=== PATIENT | male | born 2000 ===

== ENCOUNTER → 2022-08-06 09:28 | Outpatient (CLI) | payer OTHER, SELFPAY ==
[2022-08-06 11:30] LABS: Influenza A - CEPHEID Flu A NEGATIVE (NEGATIVE); Influenza B - CEPHEID Flu B NEGATIVE (NEGATIVE); Respiratory Syncytial Virus Negative (Negative)
[2022-08-06 11:32] LABS: COVID-19 CEPHEID 4-PLEX PCR Negative (Negative)
== END ==
PROVIDERS: Family Provider Pediatrics; PCP Pediatrics; Visit Provider Student in an Organized Health Care Education/Training Program
DX: J02.9 Acute pharyngitis, unspecified (principal); J06.9 Acute upper respiratory infection, unspecified
CPT/HCPCS: 0241U; 87070